=== PATIENT | female | born 1975 | race Caucasian/White ===

== ENCOUNTER 2021-01-11 10:30 | Day surgery (SDC) | payer OTHER ==
[~2021-01-11] VITALS: Ht 149.9 cm; Wt 70.0 kg
[2021-01-11] VITALS (11 sets, daily range): BP systolic 88–120; BP diastolic 41–72; PULSE 59–82; TEMP 97.9
[2021-01-11] MEDS ORDERED: IRON TABLETS325 MG PO (11:47)
[2021-01-11] MEDS ORDERED: ASPIRIN E.C. 8181 MG PO (11:47)
[2021-01-11 11:48] LABS: HEMOGLOBIN 11.6 g/dl (12.5-16.0); MEAN CELL VOLUME 82 fl (80.0-100.0); MEAN CORPUSCULAR HEMOGLOBIN 27 pg (27.0-31.0); MEAN CORPUSCULAR HGB CONC 33 g/dl (33.0-37.0); MEAN PLATELET VOLUME 10.5 fl (7.4-10.4); PLATELET COUNT 278 K/mm3 (130-400); REDCELL DISTRIBUTION WIDTH-CV 15.7 % (11.5-14.5)
[2021-01-11] MEDS ORDERED: ZESTRIL 10MG10 MG PO (11:48)
[2021-01-11] MEDS ORDERED: GLUCOPHAGE1000 MG PO (11:48)
[2021-01-11 11:49] LABS: HEMATOCRIT 35.2 % (37.0-47.0)
[2021-01-11] MEDS ORDERED: LIPITOR20 MG PO (11:49)
[2021-01-11] MEDS ORDERED: COREG12.5 MG PO (11:49)
[2021-01-11] MEDS ORDERED: COUMADIN 2MG2 MG/TAB PO (11:50)
[2021-01-11] MEDS ORDERED: LASIX 20MG TABL20 MG PO (11:52)
[2021-01-11 11:57] LABS: INR 1.2 (0.8-3.0); PROTHROMBIN TIME 13.2 SECONDS (9.7-12.8)
[2021-01-11] MEDS ORDERED: LOVENOX 6060 MG/0.6 SQ (11:59)
[2021-01-11 12:25] LABS: CALCIUM 9.5 mg/dL (8.4-10.2); CREATININE, serum 0.75 mg/dL (0.57-1.11); POTASSIUM 4.5 mmol/L (3.5-4.5)
--- NOTE | 2021-01-11 13:27 | NUR ---
SEE MERGE DOCUMENTATION FOR MEDICATION ADMINISTRATION TIMES AND INTRA/POST PROCEDURE SEDATION ASSESSMENTS.
--- NOTE | 2021-01-11 14:00 | NUR ---
Report from Amando PELAEZ. Transferred from Diffuser Operator by bed. Tearful and c/o pain to right wrist under Tband. Right Tband with 12 cc CD&I, strong pulses and cap refill < 3 secs. Right arm soft and pt can move it without difficulty. Right groin site dressing CD&I, soft to palpation with palpable pedal pulses noted. VSS. bedside
--- NOTE | 2021-01-11 17:50 | NUR ---
Right Tband released of 12 cc air and dressing placed. Right groin site soft to palpation. INT discontinued intact.
--- NOTE | 2021-01-11 18:00 | NUR ---
Discharge instructions given. Transferred to private car by duncan
== END 2021-01-11 18:01 | disposition home or self-care (01) ==
LOC: COL.CAR 10:30
PROVIDERS: Internal Medicine Cardiovascular Disease
DX: I11.0 Hypertensive heart disease with heart failure (principal); I50.9 Heart failure, unspecified; I49.3 Ventricular premature depolarization; Q20.0 Common arterial trunk; Z95.818 Presence of other cardiac implants and grafts; Z95.2 Presence of prosthetic heart valve
CPT/HCPCS: C1760; C1769; C1894; J1644; J2250; J3010; Q9967

== ENCOUNTER 2023-11-11 17:36 | Inpatient (IN) | payer OTHER ==
[2023-11-11] VITALS (91 sets, daily range): BP systolic 81–101; BP diastolic 34–67; PULSE 125–130; TEMP 98; O2SAT 90–96
[~2023-11-11] VITALS: Ht 149.9 cm; Wt 70.6 kg
[~2023-11-11 17:36] MED LIST: ASPIRIN E.C. 8181 MG PO; COREG12.5 MG PO; COUMADIN 22.5 MG/TAB PO; GLUCOPHAGE500 MG/TAB PO; IRON TABLETS325 MG PO; LASIX 20MG TABL20 MG PO; LIPITOR20 MG PO; LOVENOX 6060 MG/0.6 SQ; ZESTRIL 10MG10 MG PO
[2023-11-11] MEDS ORDERED: Magnesium Sulfate 4% 50 ML IV ONE (19:30)
[2023-11-11] MEDS ORDERED: Esmolol 10 MG/ML 10 ML VIAL IV ONE ×2 (19:30→21:45)
[2023-11-11] MEDS ORDERED: Esmolol/Na Chlor 0.9% 250 ML IV SCH (19:45)
[2023-11-11] MEDS ORDERED: Warfarin 4 MG TAB PO ONE (19:45)
[2023-11-11] MEDS ORDERED: Acetaminophen 325 MG TAB PO PRN (19:45)
[2023-11-11] MEDS ORDERED: Bisacodyl 5 MG TAB PO PRN (19:45)
[2023-11-11] MEDS ORDERED: Polyethylene Glycol 3350 17 GM PDS PO PRN (19:45)
[2023-11-11] MEDS ORDERED: Docusate Sodium 100 MG CAP PO PRN (19:45)
[2023-11-11] MEDS ORDERED: WARFARIN PO ONE (20:00)
[2023-11-11 20:44] LABS: ALANINE AMINOTRANSFERASE 15 U/L (0-55); ALBUMIN 3.1 g/dL (3.5-5.0); ALKALINE PHOSPHATASE 152 U/L (40-150); ANION GAP 9 mmol/L (7-16); AST,SGOT 16 U/L (5-34); BILIRUBIN,TOTAL 0.4 mg/dL (0.2-1.2); BLOOD UREA NITROGEN 12 mg/dL (7-19); CALCIUM 8.4 mg/dL (8.4-10.2); CHLORIDE 109 mEq/L (98-107); CHOLESTEROL 117 mg/dL (0-199); CHOLESTEROL RISK RATIO 4.1; CREATINE KINASE 29 U/L (29-168); CREATININE, serum 0.68 mg/dL (0.57-1.11); GLUCOSE 97 mg/dL (70-99); HDL CHOLESTEROL 28 mg/dL (40-60); LDL CHOLESTEROL 65 mg/dL; SODIUM 138 mEq/L (136-145); TOTAL PROTEIN 6.7 g/dl (6.2-8.1)
[2023-11-11 20:51] LABS: TROPONIN-I < 0.010 ng/mL (0.00-0.033)
[2023-11-11] MEDS ORDERED: Insulin Lispro (HumaLOG) SQ SCH (21:00)
[2023-11-11] MEDS ORDERED: Atorvastatin 20 MG TAB PO SCH (21:15)
--- NOTE | 2023-11-11 21:30 | NUR ---
Received report from LATANYA Huntley at 1855. Pt arrived with EMT at 1858. Pt is alert and able to answer questions. Pt's vitals are stable upon arrival with pt in afib with rate of 130. Pt was on fluid on arrival, but was DC'd per night hospitalist. Pt arrived with ring on ring finger, phone, umbrella finisher, pads, home meds, book, clothes, and flip flops. Assessment intake and physical has been finished. Esmolol drip was started. Will continue with pt care.
[2023-11-11] MEDS ORDERED: LR 1,000 ML IV ONE (23:00)
[2023-11-11] MEDS ORDERED: Phenylephrine 20 MG in NS 250 ML IV SCH (23:15)
[2023-11-11] MEDS ORDERED: Phenylephrine 1 MG/10 ML SYRINGE IV PRN (23:15)
[2023-11-11] MEDS ORDERED: LEXAPRO 10MG10 MG PO (23:37)
[2023-11-11] MEDS ORDERED: KLOR-CON SPRIN10 MEQ PO (23:45)
[2023-11-11] MEDS ORDERED: CALCIUM-MAGNES1 EAC1 PO (23:52)
[2023-11-11] MEDS ORDERED: TYLENOL 500MG500 MG PO (23:55)
[2023-11-12] VITALS (532 sets, daily range): BP systolic 83–110; BP diastolic 37–65; PULSE 22–125; TEMP 97.1–98.4; O2SAT 89–100
[2023-11-12] MEDS ORDERED: Esmolol 10 MG/ML 10 ML VIAL IV ONE (02:30)
[2023-11-12] MEDS ORDERED: Ondansetron 4 MG/2 ML VIAL IV PRN (02:45)
[2023-11-12] MEDS ORDERED: dilTIAZem 25 MG/5 ML VIAL IV SCH (03:00)
[2023-11-12] MEDS ORDERED: Esmolol/Na Chlor 0.9% 250 ML IV SCH (03:30)
[2023-11-12] MEDS ORDERED: Warfarin 1 MG TAB PO PRN (04:45)
[2023-11-12 05:45] LABS: BASO # 0.1 K/mm3 (0.0-0.2); BASO % 0.5 % (0.0-2.0); EOS # 0.2 K/mm3 (0.0-0.7); EOS % 1.7 % (0.0-4.0); GRAN # 10.9 K/mm3 (1.4-6.5); GRAN % 78.6 % (42.2-75.2); HEMOGLOBIN 10.7 g/dl (12.5-16.0); LYMPH # 1.5 K/mm3 (1.2-3.4); LYMPH % 11.1 % (20.0-51.0); MEAN CELL VOLUME 81 fl (80.0-100.0); MEAN CORPUSCULAR HEMOGLOBIN 26 pg (27-31); MEAN CORPUSCULAR HGB CONC 32 g/dl (33.0-37.0); MONO % 7.5 % (1.7-9.3); PLATELET COUNT 342 K/mm3 (130-400); RED BLOOD COUNT 4.13 M/mm3 (4.10-5.30); REDCELL DISTRIBUTION WIDTH-CV 16.3 % (11.5-14.5)
[2023-11-12 05:52] LABS: INR 2.9 (0.8-3.0); PROTHROMBIN TIME 30.6 SECONDS (9.7-12.8)
[2023-11-12 05:55] LABS: PARTIAL THROMBOPLASTIN TIME 44.5 SECONDS (26.0-37.0)
[2023-11-12 05:56] LABS: HEMATOCRIT 33.4 % (37.0-47.0)
[2023-11-12 06:07] LABS: ALBUMIN 2.9 g/dL (3.5-5.0); BILIRUBIN,TOTAL 0.5 mg/dL (0.2-1.2); CALCIUM 8.3 mg/dL (8.4-10.2); CREATININE, serum 0.71 mg/dL (0.57-1.11); MAGNESIUM 2.5 mg/dL (1.6-2.6); POTASSIUM 4.7 mEq/L (3.5-4.5); TOTAL PROTEIN 6.3 g/dl (6.2-8.1)
[2023-11-12] MEDS ORDERED: Phenylephrine 500 MCG/5 ML VIAL IV PRN (06:45)
--- NOTE | 2023-11-12 06:59 | NUR ---
Pt's HR is still in a-flutter at rate control while on the esmolol drip. Earlier in the night the pt got up to the toilet and the pt's rate went back up to the 125-130. Pt's SBP has been around 80's and 90's with the MAP within moderate range 63-70's most of the night. When the SBP in the low 80's and in 70's it was addressed and given a 1L bolus and midodrine was given per EMAR. Pt is on 1 L O2 via NC since there was a period where she was stating in the 87-89%. Pt's vitals are stable at this time with esmolol running. Pt is resting in bed with call light within reach. Will give report to day shift nurse.
--- NOTE | 2023-11-12 07:00 | NUR ---
REPORT RECEIVED FROM LATANYA MACIEL. PT RESTING IN BED, VSS, ON 1L O2 PER NC. ESMOLOL INFUSING TO R FOREARM PERIPHERAL IV ORDERED. PT IS ALERT AND ORIENTED, DENIES NEEDS, CALL LIGHT IN REACH.
[2023-11-12] MEDS ORDERED: Dextrose (Glucose) 15 GM (4 x 3.75 GM) Chewable TABLET PACK PO PRN (07:30)
[2023-11-12] MEDS ORDERED: Glucagon 1 MG VIAL IM PRN (07:30)
[2023-11-12] MEDS ORDERED: Dextrose 50% Water 25 GM/50 ML SYRINGE IV PRN (07:30)
[2023-11-12] MEDS ORDERED: Amiodarone 450 MG in D5W Excel 250 ML IV SCH ×4 (08:26→23:45)
[2023-11-12] MEDS ORDERED: Escitalopram 10 MG TAB PO SCH (09:00)
[2023-11-12] MEDS ORDERED: Ferrous Sulfate 325 MG TAB PO SCH (09:00)
[2023-11-12] MEDS ORDERED: Azithromycin 500 MG in NS 250 ML IV SCH (09:00)
--- NOTE | 2023-11-12 09:24 | NUR ---
care worker met with patient to discuss discharge planning. Patient lives in [place] with her , Tung, Home P# [phone], Work P# [phone]. PCP is Dr. Hendrix, Pharmacy is [facility]. Insurance is [employer], no issues affording medications. Patient does not have a DPOA-HC in writing but reports it would be her Tung. No DME and independent with ADLS. Patient is able to transport herself to and from appointments. Patient would like to return home at time of discharge. SW explained she or another social work specialist will continue to follow her care to determine if she needs any services or supports upon discharge. Patient understood, no questions or concerns for social work specialist at this time. DIscharge plan: Home
[2023-11-12] MEDS ORDERED: Doxycycline Hyclate 100 MG in NS 150 ML IV SCH (09:30)
[2023-11-12] MEDS ORDERED: cefTRIAXone 1 G in Water For Injection,Sterile 10 ML IV SCH (10:00)
[2023-11-12] MEDS ORDERED: 1/2 NS 1,000 ML IV SCH (14:00)
[2023-11-12] MEDS ORDERED: Budesonide Neb Susp 0.5 MG/2 ML AMP IH SCH (19:00)
--- NOTE | 2023-11-12 19:30 | NUR ---
Received report from LATANYA Mccormick. Vitals are stable at this time. Pt is alert and lying in bed with bed in low position and call light within reach. Pt is currently on an amio drip. Pt does not look to be in distress at this time. Will continue with pt care.
[2023-11-13] VITALS (351 sets, daily range): BP systolic 101–122; BP diastolic 53–78; PULSE 66–86; TEMP 97.2–97.9; O2SAT 91–99
[2023-11-13 05:42] LABS: BASO # 0.1 K/mm3 (0.0-0.2); BASO % 0.4 % (0.0-2.0); EOS # 0.2 K/mm3 (0.0-0.7); EOS % 1.7 % (0.0-4.0); GRAN # 11.1 K/mm3 (1.4-6.5); GRAN % 79.3 % (42.2-75.2); HEMOGLOBIN 10.7 g/dl (12.5-16.0); LYMPH # 1.2 K/mm3 (1.2-3.4); LYMPH % 8.9 % (20.0-51.0); MEAN CELL VOLUME 80 fl (80.0-100.0); MEAN CORPUSCULAR HEMOGLOBIN 26 pg (27-31); MEAN CORPUSCULAR HGB CONC 32 g/dl (33.0-37.0); MEAN PLATELET VOLUME 10.1 fl (7.4-10.4); MONO # 1.2 K/mm3 (0.1-0.6); MONO % 8.8 % (1.7-9.3); PLATELET COUNT 317 K/mm3 (130-400); RED BLOOD COUNT 4.18 M/mm3 (4.10-5.30); REDCELL DISTRIBUTION WIDTH-CV 16.6 % (11.5-14.5)
[2023-11-13 05:51] LABS: HEMATOCRIT 33.4 % (37.0-47.0)
[2023-11-13 05:53] LABS: INR 5.3 (0.8-3.0); PROTHROMBIN TIME 55.2 SECONDS (9.7-12.8)
[2023-11-13 06:00] LABS: CALCIUM 8.3 mg/dL (8.4-10.2); CREATININE, serum 0.7 mg/dL (0.57-1.11); POTASSIUM 4.2 mEq/L (3.5-4.5)
[2023-11-13 06:27] LABS: INR 5.4 (0.8-3.0)
--- NOTE | 2023-11-13 06:42 | NUR ---
Pt had an uneventful night. Vitals have been stable and in normal sinus rhythm and BP's are stable. Pt did have a period of N/V and zofran was given per EMAR and pt then started to feel better and had no more episodes since then. Pt is currently on the amio drip at 1 mg/min. Pt is currently resting in bed with bed in low position and call light within reach. Will give report to day shift nurse.
--- NOTE | 2023-11-13 07:13 | NUR ---
Patient seems to be resting with eyes closed, no distress noted. VSS. Room air. No needs at this time.
[2023-11-13] MEDS ORDERED: Mometasone/Formoterol 200/5 MCG MDI IH SCH (09:30)
--- NOTE | 2023-11-13 09:45 | NUR ---
Double checked with Yesenia Ramos, Cardiology, for intiation of Sotalol with a baseline QTc of 523, confirmed to give per Cardiology Doctor. Will monitor for changes in QTc with daily ECG. Report any significant changes. Amiodarone to be discontiued in one hour of PO Sotalol.
--- NOTE | 2023-11-13 12:25 | NUR ---
workers' compensation claims supervisor attended interdisciplinary clinical rounding with Dr. Hanley. Patient will be transferring to the medical floor today. SW notified medical floor social service director, Марина, of patient going to medical floor today.
--- NOTE | 2023-11-13 16:26 | NUR ---
Report given to Yasemin PELAEZ, patient alert and oriented, RA, VSS. NO complaints at this time. Escorted personal belongings upstairs with spouse via wheelchair. Telemetry monitoring.
--- NOTE | 2023-11-13 16:30 | NUR ---
Pt arrived to medical floor from ICU by wheelchair. Report received from SUPERVISING EDITOR TRAILER Maci by phone. Shift assessment completed. Pt denies pain at this time rating 0/10. Pt ambulates independently in room with no complications. NSR on telemetry at this time. Wheezing noted upon auscultation during inspiration and expiration throughout all lung ulrich. Oriented pt to room, call light, and bathroom. Home medications, allergies, and pharmacy reviewed. RUE PICC line patent with no swelling, redness, or drainage. Pt has no complaints at this time. Call light within reach.
--- NOTE | 2023-11-13 19:06 | NUR ---
Bedside report given to LATANYA Roblero. Pt resting in recliner with no complaints. Call light within reach.
[2023-11-13] MEDS ORDERED: Doxycycline Monohydrate 100 MG CAP PO SCH (21:00)
--- NOTE | 2023-11-13 21:00 | NUR ---
Pt. resting in bed upon entry. Administered scheduled meds per MAY. QTc 501. Administered sotalol per cardiology note. Shift assessment complete. Pt. is audibly wheezing w/ respirations. Upon auscultation, inspiratory and expiratory wheezes noted in all lung ulrich. Pt. has productive cough w/ clear thin appearing sputum. Pt. reports nausea earlier in the day, but denies at this time. No further outstanding findings. Pt. denies requests or complaints. Call light in reach.
--- NOTE | 2023-11-13 22:08 | NUR ---
traffic technician reported pt. was off front desk monitor. Pt. resting in bed; respirations even and unlabored. Checked leads and replaced telemetry stickers. Pt. returned to front desk monitor.
--- NOTE | 2023-11-13 23:15 | NUR ---
Pt. called to report emesis after episode of coughing. Pt. endorses nausea and requests medication. RN administered IV zofran per MAY.
--- NOTE | 2023-11-13 23:21 | NUR ---
Patient called with c/o nausea. Zofran given per dr order.
[2023-11-14] VITALS (7 sets, daily range): BP systolic 106–122; BP diastolic 65–74; PULSE 60–65; TEMP 97.6–98.1
--- NOTE | 2023-11-14 04:30 | NUR ---
AM labs drawn from PICC line. Good blood return/flushes well. Will monitor.
--- NOTE | 2023-11-14 05:42 | NUR ---
Pt. c/o 09/08 pain at 0430. Administered PRN tylenol per MAY. Upon, reassessment, pt. was resting in bed w/ eyes closed and respirations even & unlabored. Call light in reach. VSS through the night.
[2023-11-14 06:43] LABS: BASO # 0.1 K/mm3 (0.0-0.2); BASO % 0.5 % (0.0-2.0); EOS # 0.1 K/mm3 (0.0-0.7); EOS % 0.6 % (0.0-4.0); GRAN # 11.4 K/mm3 (1.4-6.5); GRAN % 79.2 % (42.2-75.2); HEMATOCRIT 32.8 % (37.0-47.0); HEMOGLOBIN 10.5 g/dl (12.5-16.0); LYMPH # 1.6 K/mm3 (1.2-3.4); LYMPH % 11.2 % (20.0-51.0); MEAN CELL VOLUME 81 fl (80.0-100.0); MEAN CORPUSCULAR HEMOGLOBIN 26 pg (27-31); MEAN CORPUSCULAR HGB CONC 32 g/dl (33.0-37.0); MONO % 7.3 % (1.7-9.3); PLATELET COUNT 323 K/mm3 (130-400); RED BLOOD COUNT 4.07 M/mm3 (4.10-5.30); REDCELL DISTRIBUTION WIDTH-CV 16.4 % (11.5-14.5)
[2023-11-14 07:11] LABS: INR 6.2 (0.8-3.0); PROTHROMBIN TIME 64.5 SECONDS (9.7-12.8)
[2023-11-14 07:12] LABS: CALCIUM 8.7 mg/dL (8.4-10.2); CREATININE, serum 0.73 mg/dL (0.57-1.11)
--- NOTE | 2023-11-14 08:12 | NUR ---
LAB CALLED FOR CRITICAL VALUE. PT 64.5, INR 6.2. SARA BEE NOTIFIED.
--- NOTE | 2023-11-14 15:33 | NUR ---
PATIENT HAS BEEN RESTING IN ROOM ALL SHIFT. DENIES SOA, PAIN, OR DISCOMFORT. TELEMETRY ON. CALL LIGHT WITHIN REACH.
--- NOTE | 2023-11-14 18:57 | NUR ---
PATIENT RESTING IN BEDSIDE RECLINER TALKING ON PHONE WITH TV ON WITH NO FAMILY PRESENT WITH NO ACUTE DISTRESS NOTED. PATIENT ON ROOM AIR. PICC LINE TO RIGHT UPPER ARM INTACT WITH NO COMPLICATIONS NOTED. TELEMETRY INTACT. PATIENT DENIES ANY NEEDS AT THIS TIME. RECLINER LOCKED AND CALL LIGHT WITHIN REACH.
--- NOTE | 2023-11-14 21:12 | NUR ---
PATIENT RESTING IN BED WITH TV ON WITH NO FAMILY PRESENT WITH NO ACUTE DISTRESS NOTED. PATIENT ON ROOM AIR. PICC LINE TO RIGHT UPPER ARM INTACT WITH NO COMPLICATIONS NOTED. TELEMETRY INTACT. ASSESSMENT AND MEDICATION ADMINISTRATION COMPLETED AT THIS TIME. PATIENT TOLERATED WELL. PATIENT DENIES ANY NEEDS AT THIS TIME. BED IN LOW POSITION WITH WHEELS LOCKED WITH RAILS UP X2 AND CALL LIGHT WITHIN REACH.
[2023-11-15] VITALS (7 sets, daily range): BP systolic 109–128; BP diastolic 76–78; PULSE 57–62; TEMP 97.6–97.9
[2023-11-15 06:42] LABS: MEAN CELL VOLUME 81 fl (80.0-100.0); MEAN CORPUSCULAR HGB CONC 32 g/dl (33.0-37.0); MEAN PLATELET VOLUME 10.7 fl (7.4-10.4); PLATELET COUNT 269 K/mm3 (130-400); REDCELL DISTRIBUTION WIDTH-CV 16.4 % (11.5-14.5)
[2023-11-15 06:48] LABS: HEMATOCRIT 30.8 % (37.0-47.0); HEMOGLOBIN 9.9 g/dl (12.5-16.0); MEAN CORPUSCULAR HEMOGLOBIN 26 pg (27-31)
[2023-11-15 07:10] LABS: CALCIUM 8.7 mg/dL (8.4-10.2); CREATININE, serum 0.73 mg/dL (0.57-1.11)
--- NOTE | 2023-11-15 08:23 | NUR ---
THIS RN CALLED CARDIOLOGY TO NOTIFY THEM ABOUT PATIENT'S QTC OF 501. GAVE THE OK TO ADMINISTER SOTALOL. PATIENT ON TELEMETRY. WILL MONITOR
[2023-11-15 08:45] LABS: BAND 2 % (0-10); EOSINOPHIL 4 % (0-4); LYMPHOCYTE 14 % (20.0-51.0); METAMYELOCYTE 1 % (0-0); NEUTROPHILS 76 % (42.0-75.2)
[2023-11-15 08:46] LABS: ANISOCYTOSIS 1+
[2023-11-15 08:47] LABS: BURR CELLS 1+; HYPOCHROMIA 1+; MICROCYTOSIS 1+; OVALOCYTES 1+
--- NOTE | 2023-11-15 09:05 | NUR ---
PATIENT RESTING IN BED. ALERT AND ORIENTED. DENIES PAIN, SOA, OR CONCERNS. TELEMETRY ON. CALL LIGHT WITHIN REACH.
[2023-11-15] MEDS ORDERED: BETAPACE 80MG80 MG PO (10:10)
[2023-11-15] MEDS ORDERED: DULERA1 AR1 IH (10:12)
[2023-11-15] MEDS ORDERED: MONODOX100 PO (10:14)
[2023-11-15] MEDS ORDERED: CEFTIN500 MG PO (10:15)
--- NOTE | 2023-11-15 12:00 | NUR ---
THIS RN PROVIDED PATIENT WITH DISCHARGE INSTRUCTIONS AND EDUCATION. ALL QUESTIONS ANSWERED. THIS RN CALLED [facility] TO REMOVE PICC LINE.
--- NOTE | 2023-11-15 13:30 | NUR ---
PATIENT ESCORTED OFF UNIT BY THIS RN. ALL BELONGINGS WITH PATIENT.
== END 2023-11-15 13:18 | disposition home or self-care (01) | DRG 871 ==
LOC: ICU 17:36 → MEDICAL 19:08 → ICU 19:31 → MEDICAL 11-13 16:09
PROVIDERS: Nurse Practitioner Primary Care; ADMIT Internal Medicine
PROC: 5A2204Z Restoration of Cardiac Rhythm, Single (ICD-10-PCS; principal; 2023-11-12)
PROC: 02HV33Z Insertion of Infusion Device into Superior Vena Cava, Percutaneous Approach (ICD-10-PCS; 2023-11-12)
DX: A41.9 Sepsis, unspecified organism (principal); J18.9 Pneumonia, unspecified organism; J96.01 Acute respiratory failure with hypoxia; I48.92 Unspecified atrial flutter; E87.20 Acidosis, unspecified; I48.0 Paroxysmal atrial fibrillation; R65.20 Severe sepsis without septic shock; F41.9 Anxiety disorder, unspecified; F32.A Depression, unspecified; E78.5 Hyperlipidemia, unspecified; E11.9 Type 2 diabetes mellitus without complications; I50.9 Heart failure, unspecified; I11.0 Hypertensive heart disease with heart failure; R79.1 Abnormal coagulation profile; D64.9 Anemia, unspecified; T45.515A Adverse effect of anticoagulants, initial encounter; I08.3 Combined rheumatic disorders of mitral, aortic and tricuspid valves; I95.9 Hypotension, unspecified; I45.10 Unspecified right bundle-branch block; Z79.82 Long term (current) use of aspirin; Z79.899 Other long term (current) drug therapy; Z79.84 Long term (current) use of oral hypoglycemic drugs; Z79.01 Long term (current) use of anticoagulants; Z95.4 Presence of other heart-valve replacement
CPT/HCPCS: A9270; C1751; J0282; J0696; J1805; J1815; J2405; J2704; J3475; J7060; J7120